=== PATIENT | male | born 1990 | race African-American/Black ===

== ENCOUNTER 2016-09-10 00:02 | Emergency (ER) | payer OTHER ==
[~2016-09-10] VITALS: Ht 185.4 cm; Wt 72.6 kg
--- NOTE | 2016-09-10 00:09 | ED AMS/SEIZURE/WEAK/DIZZY ---
History of Present Illness General Chief Complaint: ETOH/Drug Related Complaint Stated Complaint: "PER EMS ETOH" Source: patient, EMS Exam Limitations: clinical condition Vital Signs & Intake/Output Vital Signs & Intake/Output Vital Signs Date Time Temp Pulse Resp B/P Pulse O2 O2 Flow FiO2 Ox Delivery Rate 09/10 0313 97.0 85 18 145/80 97 Room Air 09/10 0024 Room Air 09/10 0008 96.8 127 20 162/73 96 Room Air Allergies Coded Allergies: No Known Allergies (09/10/16) Triage Nurses Notes Reviewed? yes Onset: Abrupt Duration: minute(s): Timing: single episode today Injury Environment: home Severity: moderate Modifying Factors: Improves With: rest. Associated Symptoms: PALPITATIONS, INCREASED ANXIETY HPI: 26-year-old gentleman healthy gentleman presents with palpitations and dyspnea after smoking marijuana this evening. He states that after he smoked he developed wheezing and shortness of breath and increased agitation. He called 911. When the medics arrived they found him pacing with erratic behavior. In the field, his vitals were stable. Past History Travel History Traveled to [place] past 21 day No Medical History Any Pertinent Medical History? see below for history Surgical History Surgical History: none Psychosocial History Illicit Drug Use: marijuana Family History Hx Contributory? No Review of Systems Review of Systems Constitutional: Reports: no symptoms. EENTM: Reports: no symptoms. Respiratory: Reports: no symptoms. Cardiovascular: Reports: no symptoms. GI: Reports: no symptoms. Genitourinary: Reports: no symptoms. Musculoskeletal: Reports: no symptoms. Skin: Reports: no symptoms. Neurological/Psychological: Reports: no symptoms. Hematologic/Endocrine: Reports: no symptoms. Immunologic/Allergic: Reports: no symptoms. All Other Systems: Reviewed and Negative Physical Exam Physical Exam General Appearance: well developed/nourished, anxious, mild distress Head: atraumatic, normal appearance Eyes: Bilateral: normal appearance. Ears, Nose, Throat: normal pharynx, normal ENT inspection Neck: normal inspection, supple, full range of motion Respiratory: normal breath sounds, chest non-tender, no respiratory distress, quiet respiration, lungs clear Cardiovascular: regular rate/rhythm Gastrointestinal: normal bowel sounds, soft, non-tender, no organomegaly Back: normal inspection Extremities: normal range of motion Neurologic/Psych: no motor/sensory deficits, awake, alert, oriented x 3 Skin: intact, normal color, warm/dry Core Measures ACS in differential dx? No CVA/TIA Diagnosis: No Severe Sepsis Present: No Septic Shock Present: No Progress Differential Diagnosis: alcohol intoxication, electrolyte imbalance, drug abuse versus other Plan of Care: Orders Procedure Date/time Status URINE DRUG SCREEN FOR ER ONLY 09/10 8 Complete TROPONIN LEVEL 09/10 8 Complete ETHANOL 09/10 8 Complete COMPREHENSIVE METABOLIC PANEL 09/10 8 Complete CBC WITHOUT DIFFERENTIAL 09/10 8 Complete EKG 09/10 8 Active Laboratory Tests 09/10/1631: Serum Alcohol < 10.0 09/10/1631: Anion Gap 14, Estimated GFR > 60, BUN/Creatinine Ratio 15.0, Glucose 162 H, Calcium 9.4, Total Bilirubin 0.5, AST 27, ALT 28, Alkaline Phosphatase 62, Troponin I < 0.01, Total Protein 7.1, Albumin 4.4, Globulin 2.7, Albumin/ Globulin Ratio 1.6, CBC w Diff MAN DIFF ORDERED, RBC 5.42, MCV 77.7 L, MCH 25.6 L, RDW 14.4, MPV 8.2, Gran % 41.0 L, Lymphocytes % 46.9, Monocytes % 10.4 H, Eosinophils % 1.4, Basophils % 0.3, Absolute Granulocytes 4.2, Segmented Neutrophils 32 L, Absolute Lymphocytes 4.8 H, Lymphocytes 58 H, Monocytes 9, Absolute Monocytes 1.1 H, Eosinophils 1, Absolute Eosinophils 0.1, Absolute Basophils 0, Platelet Estimate ADEQUATE, Ovalocytes 1+, PUBS MCHC 32.9 L, Urine Opiates Screen < 100.00, Methadone Screen < 40, Barbiturate Screen < 60, Ur Phencyclidine Scrn < 6.00, Amphetamines Screen 106, U Benzodiazepines Scrn < 85, Urine Cocaine Screen < 50, Urine Cannabis Screen 72.10 H Initial ED EKG: no acute changes Departure Departure Disposition: HOME OR SELF CARE Condition: Stable Clinical Impression Primary Impression: Marijuana abuse Secondary Impressions: Amphetamine abuse Departure Forms: Customer Survey General Discharge Information Comments 09/10/2016, 3:10 AM: Patient is awake and alert. He is able to handle it without problem. He feels ready to go home. He states that his car as a blocks away. He feels safe going home. I offered him to stay until the sun comes up. He declines this opportunity. I encouraged close follow-up refraining from smoking marijuana.
[2016-09-10 00:51] LABS: ABSOLUTE BASOPHIL COUNT 0 /CUMM (0.0-0.2); ABSOLUTE EOSINOPHIL COUNT 0.1 /CUMM (0.0-0.7); ABSOLUTE GRANULOCYTE CT 4.2 /CUMM (1.4-6.5); ABSOLUTE LYMPH COUNT 4.8 /CUMM (1.2-3.4); ABSOLUTE MONOCYTE COUNT 1.1 /CUMM (0.10-0.60); BASOPHIL % 0.3 % (0.0-2.0); EOSINOPHIL % 1.4 % (0-5); HEMATOCRIT 42.1 % (42-52); MEAN CORPUSCULAR HGB 25.6 PG (27.0-31.0); MEAN CORPUSCULAR HGB CONC 32.9 G/DL (33.0-37.0); MEAN CORPUSCULAR VOLUME 77.7 FL (80.0-94.0); MEAN PLATELET VOLUME 8.2 FL (7.4-10.4); PLATELET COUNT 345 /CUMM (130-400); RBC DISTRIBUTION WIDTH 14.4 % (11.5-14.5); RED BLOOD CELL CT 5.42 /CUMM (4.70-6.10); WHITE BLOOD CELL COUNT 10.1 /CUMM (4.8-10.8)
[2016-09-10 03:13] VITALS: BP 145/80
== END 2016-09-10 05:30 ==
LOC: ERH 00:02
PROVIDERS: Pediatrics
DX: F12.10 Cannabis abuse, uncomplicated (principal); F15.10 Other stimulant abuse, uncomplicated
CPT/HCPCS: 80307; 93005; 93010; 96372; G0480